=== PATIENT | male | born 1995 | race Caucasian/White ===

== ENCOUNTER 2016-02-28 18:25 | Emergency (ER) | payer MEDICAID ==
[~2016-02-28] VITALS: Ht 182.9 cm; Wt 81.6 kg
[2016-02-28 18:25] VITALS: BP 156/81
== END 2016-02-28 19:31 | disposition home or self-care (01) ==
LOC: ER 18:27
DX: J32.9 Chronic sinusitis, unspecified (principal); I10 Essential (primary) hypertension
CPT/HCPCS: 99283; A4606; Z7610

== ENCOUNTER 2016-06-26 21:02 | Emergency (ER) | payer MEDICAID ==
[~2016-06-26] VITALS: Ht 172.7 cm; Wt 87.5 kg
--- NOTE | 2016-06-26 21:20 | NUR ---
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 DENIES HEMATURIA/DYSURIA/FREQUENCY. NAD NOTED. AMBULATORY WITH STEADY GAIT. IN ER BED 11.
[2016-06-26 21:32] LABS: APPEARANCE,URINE Clear (CLEAR); BILIRUBIN,URINE Negative (NEGATIVE); BLOOD, URINE Large Ery/uL (NEGATIVE); COLOR,URINE Yellow (YELLOW); KETONES,URINE Negative (NEGATIVE); LEUKOCYTE ESTERASE ,URINE Negative (NEGATIVE); NITRITE, URINE Negative (NEGATIVE); PROTEIN,URINE 30 mg/dl (NEGATIVE); UGLUCOSE Negative (NEGATIVE); UROBILINOGEN,URINE 0.2 EU/dL (0.2)
[2016-06-26 21:42] LABS: BASOPHILS # (AUTO) 0.1 /CMM (0.0-0.2); BASOPHILS % (AUTO) 0.7 % (0.0-2.0); EOSINOPHILS % (AUTO) 0.4 % (0.0-6.0); HEMATOCRIT 44 % (39-51); HEMOGLOBIN 15.7 g/dL (13.5-17.5); LYMPHOCYTES # (AUTO) 1.5 /CMM (0.8-4.8); LYMPHOCYTES % (AUTO) 12.3 % (20.0-44.0); MEAN CORPUSCULAR HEMOGLOBIN 31 PG (26.0-33.0); MEAN CORPUSCULAR HGB CONC 36 g/dl (31.0-36.0); MEAN CORPUSCULAR VOLUME 89 fL (80-96); MONOCYTES # (AUTO) 0.7 /CMM (0.1-1.30); MONOCYTES % (AUTO) 6.1 % (2.0-12.0); NEUTROPHILS # (AUTO) 9.7 /CMM (1.8-8.9); NEUTROPHILS % (AUTO) 80.5 % (43.0-81.0); PLATELET COUNT (AUTO) 243 /CMM (150-450); RDW COEFFICIENT OF VARIATION 11.6 (11.5-15.0); RED BLOOD CELL COUNT(AUTO) 5.01 MIL/uL (4.5-6.0)
--- NOTE | 2016-06-26 21:43 | NUR ---
PT TRANSPORTED TO CT IN STABLE CONDITION
[2016-06-26 21:44] LABS: ADD URINE CULTURE NO; BACTERIA,URINE Few /HPF (None Seen); RBC,URINE 21-50 /HPF (0-2); SQUAMOUS EPITHELIAL CELL,UR Few /HPF (None Seen)
[2016-06-26] MEDS ORDERED: MORPHINE SULFATE INJ 4 MG/ML DISP.SYRIN ONE (21:44)
[2016-06-26] MEDS ORDERED: IV SET PRIMARY 1 EA INFUS.SET MC ONE (21:44)
[2016-06-26] MEDS ORDERED: ONDANSETRON HCL/PF 4 MG/2 ML VIAL ONE (21:44)
[2016-06-26] MEDS ORDERED: IV NS 0.9% 0 ML ONE (21:44)
[2016-06-26 21:47] LABS: CALCIUM, SERUM 8.8 mg/dL (8.5-10.1); CREATININE 1.1 mg/dL (0.6-1.3); POTASSIUM 3.9 mmol/L (3.5-5.1)
[2016-06-26] MEDS ORDERED: ACETAMINOPHEN ES 500 MG TABLET ONE (21:57)
--- NOTE | 2016-06-26 21:58 | NUR ---
PT REFUSES IV ACCESS, REFUSES IVF AND MORPHINE. EDUCATED ON RISKS AND BENEFITS. PT ASKING FOR A "PAIN PILL... A HALF OF A PAIN PILL", AND STATES HE IS CONCERNED ABOUT POSSIBLE ALLERGIC REACTION AND SEDATING EFFECTS OF PAIN MEDICATION. PROVIDED WITH PITCHER OF WATER AND ENCOURAGED PO INTAKE IF REFUSING IVF. 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 ORDER FOR TYLENOL OBTAINED.
[2016-06-26] MEDS: ACETAMINOPHEN ES 500 MG TABLET PO ONE (22:00)
[2016-06-26] MEDS: MORPHINE SULFATE INJ 2 MG/ML DISP.SYRIN IV ONE (22:37)
[2016-06-26] MEDS: IV NS 0.9% 1,000 ML BAG IV ONE (22:37)
[2016-06-26] MEDS: ONDANSETRON HCL/PF 4 MG/2 ML VIAL IVP ONE (22:38)
--- NOTE | 2016-06-26 22:55 | NUR ---
PT CONTINUES TO C/O PAIN. THOROUGH REEDUCATION ON RISKS AND BENEFITS OF IV PAIN MEDICATION EXPLAINED VIA EMT LALA MEDICAL IMAGING DIRECTOR. PT STATES "I WILL THINK ABOUT IT"
[2016-06-26] MEDS ORDERED: KETOROLAC TROMETHAMINE INJ 60 MG/2 ML VIAL IM ONE (23:38)
[2016-06-26] MEDS ORDERED: TAMSULOSIN 0.4 MG CAP.SR.24H ONE (23:54)
[2016-06-27] MEDS: TAMSULOSIN 0.4 MG CAP.SR.24H PO ONE (00:02)
[2016-06-27] MEDS: KETOROLAC TROMETHAMINE INJ 60 MG/2 ML VIAL IM ONE (00:02)
--- NOTE | 2016-06-27 00:06 | NUR ---
Patient discharged to home in stable condition. Written and verbal after care instructions given. Patient verbalizes understanding of instruction. AMBULATORY WITH STEADY GAIT. COPIES OF ALL LABS AND IMAGING PROVIDED TO PT
[2016-06-27 00:20] VITALS: BP 152/74
== END 2016-06-27 00:20 | disposition home or self-care (01) ==
LOC: ER 21:02
DX: N20.9 Urinary calculus, unspecified (principal); I10 Essential (primary) hypertension
CPT/HCPCS: 36415; 80048-TC; 81000-TC; 85025-TC; A4606; J1885; J2270; J2405; J7030; Z7610

== ENCOUNTER 2017-07-03 07:14 | Emergency (ER) | payer MEDICAID ==
[~2017-07-03] VITALS: Ht 177.8 cm; Wt 89.8 kg
--- NOTE | 2017-07-03 07:20 | NUR ---
PT CAME IN WITH C/O HEMATURIA AND DYSURIA UPON WAKING UP. SEEN BY MD FOR EVAL. VSS. SAFETY AND COMFORT MEASURES PROVIDED. WILL MONITOR.
[2017-07-03] MEDS ORDERED: KETOROLAC TROMETHAMINE INJ 30 MG/ML VIAL ONE (07:39)
[2017-07-03] MEDS ORDERED: ONDANSETRON HCL/PF 4 MG/2 ML VIAL ONE (07:39)
[2017-07-03] MEDS ORDERED: ONDANSETRON HCL/PF - ER 4 MG/2 ML VIAL IV ONE (08:00)
[2017-07-03] MEDS ORDERED: IV NS 0.9% 1,000 ML BAG IV ONE (08:00)
[2017-07-03] MEDS ORDERED: KETOROLAC TROMETHAMINE INJ 30 MG/ML VIAL IV ONE (08:00)
[2017-07-03 08:05] LABS: BASOPHILS % (AUTO) 0.4 % (0.0-2.0); EOSINOPHILS % (AUTO) 1.4 % (0.0-6.0); HEMATOCRIT 45 % (39-51); HEMOGLOBIN 15.6 g/dL (13.5-17.5); LYMPHOCYTES # (AUTO) 2.5 /CMM (0.8-4.8); LYMPHOCYTES % (AUTO) 37.6 % (20.0-44.0); MEAN CORPUSCULAR HGB CONC 35 g/dl (31.0-36.0); MEAN CORPUSCULAR VOLUME 88 fL (80-96); MONOCYTES # (AUTO) 0.7 /CMM (0.1-1.30); MONOCYTES % (AUTO) 9.8 % (2.0-12.0); NEUTROPHILS # (AUTO) 3.4 /CMM (1.8-8.9); NEUTROPHILS % (AUTO) 50.8 % (43.0-81.0); PLATELET COUNT (AUTO) 262 /CMM (150-450); RDW COEFFICIENT OF VARIATION 13.1 (11.5-15.0); RED BLOOD CELL COUNT(AUTO) 5.12 MIL/uL (4.5-6.0); WHITE BLOOD COUNT (AUTO) 6.7 K/uL (4.3-11.0)
[2017-07-03 08:06] LABS: APPEARANCE,URINE CLEAR (CLEAR); BILIRUBIN,URINE NEGATIVE (NEGATIVE); BLOOD, URINE 3+ Ery/uL (NEGATIVE); COLOR,URINE YELLOW (YELLOW); KETONES,URINE NEGATIVE (NEGATIVE); LEUKOCYTE ESTERASE ,URINE NEGATIVE (NEGATIVE); NITRITE, URINE NEGATIVE (NEGATIVE); PH,URINE 6.5 (5.0-8.0); PROTEIN,URINE NEGATIVE (NEGATIVE); UGLUCOSE NEGATIVE (NEGATIVE); UROBILINOGEN,URINE 0.2 EU/dL (0.2)
[2017-07-03 08:15] LABS: CALCIUM, SERUM 9.3 mg/dL (8.5-10.1); POTASSIUM 3.9 mmol/L (3.5-5.1)
[2017-07-03 08:21] LABS: ALBUMIN 4.2 g/dL (3.4-5.0); BILIRUBIN,TOTAL 0.8 mg/dL (0.2-1.0); TOTAL PROTEIN, SERUM 8.3 g/dL (6.4-8.2)
[2017-07-03 08:43] LABS: BACTERIA,URINE None seen /HPF (None Seen); RBC,URINE 21-50 /HPF (0-2); SQUAMOUS EPITHELIAL CELL,UR Few /HPF (None Seen); WBC,URINE 0-2 /HPF (0-3)
[2017-07-03 08:55] VITALS: BP 126/62
--- NOTE | 2017-07-03 09:03 | NUR ---
IV removed. Catheter intact and site benign. Pressure and 4x4 applied to site. No bleeding noted.Patient discharged to home in stable condition. Written and verbal after care instructions given. Patient verbalizes understanding of instruction.
== END 2017-07-03 09:05 | disposition home or self-care (01) ==
LOC: ER 07:18
DX: N20.0 Calculus of kidney (principal); R31.9 Hematuria, unspecified; I10 Essential (primary) hypertension
CPT/HCPCS: 36415; 74176; 80053; 81001; 85025; 96361; 96374; 96375; 99285; A4606; J1885; J2405 ×2; J7030; Z7610; 81000-TC

== ENCOUNTER 2024-11-02 11:44 | Emergency (ER) | payer MEDICAID, OTHER ==
[~2024-11-02] VITALS: Ht 170.2 cm; Wt 98.0 kg
[~2024-11-02 11:44] MED LIST: CETI-108 PO; FAMO-131 PO; PRED20TA PO
[2024-11-02 12:21] LABS: PLATELET COUNT (AUTO) 252 K/uL (150-450); RED BLOOD CELL COUNT(AUTO) 5.26 MIL/uL (4.5-6.0); RED CELL DISTRIBUTION WIDTH 13.0 % (11.5-15.0); WHITE BLOOD COUNT (AUTO) 6.6 K/uL (4.3-11.0)
[2024-11-02] MEDS ORDERED: MAG HYDROX/AL HYDROX/SIMETH 30 ML UDC ONE (12:24)
[2024-11-02] MEDS ORDERED: FAMOTIDINE/PF INJ 20 MG/2 ML VIAL IV ONE (12:24)
[2024-11-02] MEDS ORDERED: ACETAMINOPHEN 325 MG TABLET ONE (12:24)
[2024-11-02] MEDS: FAMOTIDINE/PF INJ 20 MG/2 ML VIAL IV ONE (12:30)
[2024-11-02] MEDS: MAG HYDROX/AL HYDROX/SIMETH 30 ML UDC PO ONE (12:31)
[2024-11-02] MEDS: ACETAMINOPHEN 325 MG TABLET PO ONE (12:31)
[2024-11-02 12:33] LABS: CALCIUM, SERUM 8.8 mg/dL (8.5-10.1); CREATININE 0.9 mg/dL (0.6-1.3); SODIUM SERUM 137 mmol/L (136-145); UREA NITROGEN, BLOOD 17 mg/dL (7-18)
[2024-11-02 12:40] LABS: ASPARTATE AMINOTRANSFERASE 30 U/L (15-37); TOTAL PROTEIN, SERUM 8.1 g/dL (6.4-8.2)
[2024-11-02] MEDS ORDERED: IBUP-1955 PO (13:29)
[2024-11-02 13:57] VITALS: BP 150/97; TEMP 98.5; O2SAT 100
== END 2024-11-02 13:57 | disposition home or self-care (01) ==
LOC: ER 11:55
DX: R07.2 Precordial pain (principal); R06.02 Shortness of breath; E78.5 Hyperlipidemia, unspecified; I10 Essential (primary) hypertension; Z79.52 Long term (current) use of systemic steroids; Z91.018 Allergy to other foods
CPT/HCPCS: 99285; 96374; 71045; 93005 ×2; 85025; 80048; 80076; 36415; 84484; J1308